=== PATIENT | male | born 1995 | race Caucasian/White ===

== ENCOUNTER → 2020-09-24 | Outpatient (CLI) | payer SELFPAY ==
[~2020-09-24] VITALS: Ht 182.9 cm; Wt 83.2 kg
[~2020-09-24] MED LIST: AMOX500C2 PO; LIDOCAINE 1% INJ 20 ML 20 ML VIAL INJ ONE
--- NOTE | 2020-09-24 16:02 | Diagnostic Imaging Report ---
INDICATION: Left thyroid nodule. EXAMINATION: Patient presents for ultrasound-guided biopsy. PROCEDURE: Patient was brought to the procedure room and placed on table in a supine position. Ultrasound imaging of the left neck was performed to evaluate appropriate entry site. Left neck was then prepped and draped in the usual sterile fashion. A small amount of 1% lidocaine was utilized for local anesthesia. A total of four passes were made into the mixed solid and cystic mass in the left lobe of thyroid utilizing 25-gauge needles and fine-needle aspiration technique. A single pass was made with a Rotex needle and Rotex biopsy was performed. [place] were removed and hemostasis was obtained using manual compression. Patient tolerated the procedure well and left department in stable condition. IMPRESSION: Successful ultrasound-guided fine-needle aspiration and Rotex biopsy of the complex left thyroid mass. Pathology results are currently pending. Dictated by: Dictated on workstation # [id number]
== END ==
LOC: RAD 10:00
PROVIDERS: ATTEND Nurse Practitioner Family
DX: E04.1 Nontoxic single thyroid nodule (principal)
CPT/HCPCS: 10005